=== PATIENT | female | born 1980 | race Caucasian/White ===

== ENCOUNTER → 2017-03-11 | Outpatient (CLI) | payer OTHER | LOC: MW.CHOBGYN 13:53 | PROVIDERS: ATTEND Advanced Practice Midwife | DX: Z34.90 Encounter for supervision of normal pregnancy, unspecified, unspecified trimester (principal) | CPT/HCPCS: 80305; 87491; 87591 ==

== ENCOUNTER 2017-10-22 14:19 | Inpatient (IN) | payer OTHER ==
[2017-10-22] MEDS ORDERED: Carboprost Tromethamine 250 MCG/1 ML Amp IM PRN (15:38)
[2017-10-22] MEDS ORDERED: Nalbuphine 10 MG/1 ML Vial IVPUSH PRN (15:38)
[2017-10-22] MEDS ORDERED: Misoprostol 200 MCG Tab PO PRN (15:38)
[2017-10-22] MEDS ORDERED: Methylergonovine 0.2 MG/1 ML Amp IM PRN (15:38)
[2017-10-22] MEDS ORDERED: Butorphanol 1 MG/ML SDV IVPUSH PRN (15:38)
[2017-10-22] MEDS ORDERED: Sodium Chloride 0.9% 10 ML Syringe FLUSH PRN (15:38)
[2017-10-22] MEDS ORDERED: Sodium Chloride 0.9% 2.5 ML Syringe FLUSH PRN (15:38)
[2017-10-22] MEDS ORDERED: Water For Irrigation,Sterile 1,000 ML Container IRR PRN (15:38)
[2017-10-22] MEDS ORDERED: Lidocaine 1% 50 ML MDV INJECT PRN (15:38)
[2017-10-22] MEDS ORDERED: Oxytocin/0.9 % Sodium Chloride 30 UNIT/500 ML BAG IV SCH (15:45)
[2017-10-22] MEDS ORDERED: Lactated Ringers 1,000 ML IV SCH (15:45)
[2017-10-22] MEDS ORDERED: Ampicillin 2 GM in Sodium Chloride 0.9% 100 ML IV ONE (16:30)
--- NOTE | 2017-10-22 17:06 | PCM.LDHP ---
L&D History of Present Illness - General Date of Service: 10/22/17 Admit Problem/Dx: Patient Status Order with Admit Dx/Problem 10/22/17 15:28 Patient Status [ADT] Routine 10/22/17 15:38 Patient Status [ADT] Routine Admission Diagnosis/Problem Admission Diagnosis/Problem Source of Information: Patient History Limitations: Reports: No Limitations - History of Present Illness Improves with: Reports: None Worsens with: Reports: None Associated Symptoms: Reports: N - Related Data Allergies/Adverse Reactions: Allergies Allergy/AdvReac Type Severity Reaction Status Date / Time No Known Allergies Allergy Verified 10/22/17 15:26 Home Medications: Home Meds PNV95/Ferrous Fumarate/FA [ Tablet] 10/22/17 [History] H&P Review of Systems - Review of Systems: Review Of Systems: See Below General: Reports: No Symptoms HEENT: Reports: No Symptoms Pulmonary: Reports: No Symptoms Cardiovascular: Reports: No Symptoms Gastrointestinal: Reports: No Symptoms Genitourinary: Reports: No Symptoms Musculoskeletal: Reports: No Symptoms Skin: Reports: No Symptoms Psychiatric: Reports: No Symptoms Neurological: Reports: No Symptoms Hematologic/Lymphatic: Reports: No Symptoms Immunologic: Reports: No Symptoms L&D Exam - Exam Exam: See Below - Vital Signs Weight: 122.924 kg - OB Specific Fundal Height In cm: 40 Contraction Intensity: Moderate Movement: Active Heart Tones: Present Presentation: Vertex - Zelaya Score Zelaya Score Cervix Position: Anterior Zelaya Score Consistency: Soft Zelaya Score Effacement: >80% Zelaya Score Dilation: > 5 cm Zelaya Score 's Station: -1 ,0 Zelaya Score Total: 12 - Exam General: Alert, Oriented HEENT: PERRLA, Conjunctiva Clear, EACs Clear, EOMI, Hearing Intact, Mucosa Moist & [place], Nares Patent, Normal Nasal Septum, Posterior Pharynx Clear, TMs Clear Neck: Supple, Trachea Midline Lungs: Clear to Auscultation, Normal Respiratory Effort Cardiovascular: Regular Rate, Regular Rhythm GI/Abdominal Exam: Normal Bowel Sounds, Soft, Non-Tender, No Organomegaly, No Distention, No Abnormal Bruit, No Mass, Pelvis Stable Rectal Exam: Normal Exam, Normal Rectal Tone Genitourinary: Normal external exam, Normal bimanual exam, Normal speculum exam Back Exam: Normal Inspection, Full Range of Motion Extremities: Normal Inspection, Normal Range of Motion, Non-Tender, No Pedal Edema, Normal Capillary Refill Skin: Warm, Dry, Intact Neurological: Cranial Nerves Intact, Reflexes Equal Bilateral Psychiatric: Alert, Normal Affect, Normal Mood - Patient Data Lab Results Last 24 hrs: Laboratory Results - last 24 hr 10/22/17 Range/Units 16:06 WBC 9.59 (4.0-11.0) K/uL RBC 4.17 L (4.30-5.90) M/uL Hgb 11.8 L (12.0-16.0) g/dL Hct 36.8 (36.0-46.0) % MCV 88.2 (80.0-98.0) fL MCH 28.3 (27.0-32.0) pg MCHC 32.1 (31.0-37.0) g/dL RDW Std Deviation 45.6 (28.0-62.0) fl RDW Coeff of Vicky 14 (11.0-15.0) % Plt Count 241 (150-400) K/uL MPV 11.00 (7.40-12.00) fL Nucleated RBC % 0.0 /100WBC Nucleated RBCs # 0 K/uL Result Diagrams: 10/22/17 16:06 Problem List Initiated/Reviewed/Updated: Yes Orders Last 24hrs: Active Orders 24 hr Category Date Time Status Patient Status [ADT] Routine ADT 10/22/17 15:38 Active Heart Tones [RC] CONTINUOUS Care 10/22/17 15:38 Active Non Stress Test [RC] PER UNIT ROUTINE Care 10/22/17 15:28 Active Non Stress Test [RC] PER UNIT ROUTINE Care 10/22/17 15:38 Active May Shower [RC] ASDIRECTED Care 10/22/17 15:38 Active Notify Provider [RC] PRN Care 10/22/17 15:38 Active Up ad Amy [RC] ASDIRECTED Care 10/22/17 15:28 Active Up ad Amy [RC] ASDIRECTED Care 10/22/17 15:38 Active Vaginal Exam [RC] Click to Edit Care 10/22/17 15:28 Active Vaginal Exam [RC] PRN Care 10/22/17 15:38 Active Vital Signs [RC] PER UNIT ROUTINE Care 10/22/17 15:28 Active Vital Signs [RC] PER UNIT ROUTINE Care 10/22/17 15:38 Active Clear Liquid Diet [DIET] Diet 10/22/17 Dinner Active TYPE AND SCREEN [BBK] Routine Lab 10/22/17 16:06 Received Ampicillin 1 gm Med 10/22/17 20:30 Active Sodium Chloride 0.9% [Normal Saline] 50 ml IV Q4H Butorphanol [Stadol] Med 10/22/17 15:38 Active 1 mg IVPUSH Q1H PRN Carboprost Tromethamine [Hemabate DS] Med 10/22/17 15:38 Active 250 mcg IM ASDIRECTED PRN Lactated Ringers [Ringers, Lactated] 1,000 ml Med 10/22/17 15:45 Active IV ASDIRECTED Lidocaine 1% [Xylocaine 1%] Med 10/22/17 15:38 Active 50 ml INJECT .ONCE PRN Methylergonovine [Methergine] Med 10/22/17 15:38 Active 0.2 mg IM ASDIRECTED PRN Misoprostol [Cytotec] Med 10/22/17 15:38 Active 200 mcg PO .ONCE PRN Nalbuphine [Nubain] Med 10/22/17 15:38 Active 10 mg IVPUSH Q1H PRN Oxytocin/0.9 % Sodium Chloride [Oxytocin 30 Unit/500 ML Med 10/22/17 15:45 Active -NS] 30 unit in 500 ml IV TITRATE Sodium Chloride 0.9% [Saline Flush] Med 10/22/17 15:38 Active 10 ml FLUSH ASDIRECTED PRN Sodium Chloride 0.9% [Saline Flush] Med 10/22/17 15:38 Active 2.5 ml FLUSH ASDIRECTED PRN Water For Irrigation,Sterile [Sterile Water for Med 10/22/17 15:38 Active Irrigation] 1,000 ml IRR ASDIRECTED PRN Scalp Electrode [WOMSER] Per Unit Routine Oth 10/22/17 15:38 Ordered Peripheral IV Insertion Adult [OM.PC] Routine Oth 10/22/17 15:38 Ordered Resuscitation Status Routine Resus Stat 10/22/17 15:28 Ordered Medication Orders Butorphanol Tartrate (Stadol) 1 mg IVPUSH Q1H PRN PRN Reason: Pain Carboprost Tromethamine (Hemabate Ds) 250 mcg IM ASDIRECTED PRN PRN Reason: Post Hemorrhage Lactated Ringer's (Ringers, Lactated) 1,000 mls @ 150 mls/hr IV ASDIRECTED [facility] Last Admin: 10/22/17 16:23 Dose: 150 mls/hr Oxytocin/Sodium Chloride (Oxytocin 30 Unit/500 Ml-Ns) 30 unit in 500 mls @ 999 mls/hr IV TITRATE [facility] Ampicillin Sodium 1 gm/ Sodium (Chloride) 50 mls @ 100 mls/hr IV Q4H [facility] Lidocaine HCl (Xylocaine 1%) 50 ml INJECT .ONCE PRN PRN Reason: Laceration repair Methylergonovine Maleate (Methergine) 0.2 mg IM ASDIRECTED PRN PRN Reason: Post Hemorrhage Misoprostol (Cytotec) 200 mcg PO .ONCE PRN PRN Reason: Post Hemorrhage Nalbuphine HCl (Nubain) 10 mg IVPUSH Q1H PRN PRN Reason: Pain (severe 7-10) Sodium Chloride (Saline Flush) 10 ml FLUSH ASDIRECTED PRN PRN Reason: Keep Vein Open Sodium Chloride (Saline Flush) 2.5 ml FLUSH ASDIRECTED PRN PRN Reason: Keep Vein Open Sterile Water (Sterile Water For Irrigation) 1,000 ml IRR ASDIRECTED PRN PRN Reason: delivery Assessment/Plan Comment:: 37 year old [id number] EDC 10/09/2017 admited in active labor. GBS is + will start antibiotic as per protocol. Exoacting .
[2017-10-22] MEDS ORDERED: Ibuprofen 800 MG Tab PO PRN (18:43)
[2017-10-22] MEDS ORDERED: Lanolin 100% Cream 7 GM Tube TOP PRN (18:43)
[2017-10-22] MEDS ORDERED: Docusate Sodium 100 MG Cap PO PRN (18:43)
[2017-10-22] MEDS ORDERED: Witch Hazel Medicated Pads 40/Jar TOP PRN (18:43)
[2017-10-22] MEDS ORDERED: Acetaminophen 500 MG Tab PO PRN ×2 (18:43)
[2017-10-22] MEDS ORDERED: Benzocaine/Menthol 20%-0.5% Spray 78 GM Cannister TOP PRN (18:43)
[2017-10-22] MEDS ORDERED: Ibuprofen 400 MG Tab PO PRN (18:43)
[2017-10-22] MEDS ORDERED: Bisacodyl 10 MG Supp RECTAL PRN (18:43)
[2017-10-22] MEDS ORDERED: oxyCODONE 5 MG Tab PO PRN (18:43)
[2017-10-22] MEDS ORDERED: Ampicillin 1 GM in Sodium Chloride 0.9% 50 ML IV SCH (20:30)
--- NOTE | 2017-10-22 23:39 | OR ---
SURGEON: Jack Odonnell MD DATE OF PROCEDURE: Ms. Crum is 37. She is para 4-0-1-4. She is followed in our clinic primarily by a nurse nuisance wildlife control operator, Nathalia Langford. By her dates, she is 41 plus. She is admitted in active labor. At the time of the admission, she was 5 cm, intact. She is a GBS positive and she started on the antibiotic according to the protocol and after that the patient progressed naturally without any problem. heart rate was category 1 through the entire process of labor. She was complete, complete and membrane was still intact. I did an artificial rupture of the membrane, which shows meconium tinge fluid and the patient with 1 push, she was able to accomplish normal spontaneous vaginal delivery of a male fetus, cried immediately. score reported 8 and 9. The placenta delivered spontaneous without any problem. Estimated blood loss was 250 to 300 mL. There was no complication in this . MAGALYS / ISAURO /[id number]
--- NOTE | 2017-10-23 08:50 | PCM.PNPP ---
- General Info Date of Service: 10/23/17 Functional Status: Reports: Pain Controlled - Review of Systems General: Reports: No Symptoms HEENT: Reports: No Symptoms Pulmonary: Reports: No Symptoms Cardiovascular: Reports: No Symptoms Gastrointestinal: Reports: No Symptoms Genitourinary: Reports: No Symptoms Musculoskeletal: Reports: No Symptoms Skin: Reports: No Symptoms Neurological: Reports: No Symptoms Psychiatric: Reports: No Symptoms - General Info Date of Service: 10/23/17 - Patient Data Vital Signs - Most Recent: Last Vital Signs Temp 36.3 C 10/23/17 08:21 Pulse 74 10/23/17 05:43 Resp 16 10/23/17 08:21 BP 121/81 10/23/17 08:21 Pulse Ox 97 10/23/17 05:43 Weight - Most Recent: 122.924 kg Lab Results - Last 24 Hours: Laboratory Results - last 24 hr 10/22/17 10/22/17 10/23/17 Range/Units 16:06 16:06 05:07 WBC 9.59 (4.0-11.0) K/uL RBC 4.17 L (4.30-5.90) M/uL Hgb 11.8 L 11.9 L (12.0-16.0) g/dL Hct 36.8 36.4 (36.0-46.0) % MCV 88.2 (80.0-98.0) fL MCH 28.3 (27.0-32.0) pg MCHC 32.1 (31.0-37.0) g/dL RDW Std Deviation 45.6 (28.0-62.0) fl RDW Coeff of Vicky 14 (11.0-15.0) % Plt Count 241 (150-400) K/uL MPV 11.00 (7.40-12.00) fL Nucleated RBC % 0.0 /100WBC Nucleated RBCs # 0 K/uL Blood Type O POSITIVE Antibody Screen NEGATIVE Med Orders - Current: Current Medications Acetaminophen (Tylenol Extra Strength) 500 mg PO Q4H PRN PRN Reason: Pain Acetaminophen (Tylenol Extra Strength) 1,000 mg PO Q4H PRN PRN Reason: Pain Benzocaine/Menthol (Dermoplast Pain Relief 20%-0.5% [place]) 0 gm TOP ASDIRECTED PRN PRN Reason: Perineal Comfort Measure Bisacodyl (Dulcolax) 10 mg RECTAL .ONCE PRN PRN Reason: Constipation Butorphanol Tartrate (Stadol) 1 mg IVPUSH Q1H PRN PRN Reason: Pain Carboprost Tromethamine (Hemabate Ds) 250 mcg IM ASDIRECTED PRN PRN Reason: Post Hemorrhage Docusate Sodium (Colace) 100 mg PO BID PRN PRN Reason: Constipation Emollient Ointment (Lansinoh Hpa) 0 gm TOP ASDIRECTED PRN PRN Reason: Sore Nipples Lactated Ringer's (Ringers, Lactated) 1,000 mls @ 150 mls/hr IV ASDIRECTED [facility] Last Admin: 10/22/17 16:23 Dose: 150 mls/hr Oxytocin/Sodium Chloride (Oxytocin 30 Unit/500 Ml-Ns) 30 unit in 500 mls @ 999 mls/hr IV TITRATE [facility] Last Admin: 10/22/17 18:37 Dose: 999 mls/hr Ampicillin Sodium 1 gm/ Sodium (Chloride) 50 mls @ 100 mls/hr IV Q4H [facility] Ibuprofen (Motrin) 400 mg PO Q4H PRN PRN Reason: Pain Ibuprofen (Motrin) 800 mg PO Q6H PRN PRN Reason: Pain Lidocaine HCl (Xylocaine 1%) 50 ml INJECT .ONCE PRN PRN Reason: Laceration repair Methylergonovine Maleate (Methergine) 0.2 mg IM ASDIRECTED PRN PRN Reason: Post Hemorrhage Misoprostol (Cytotec) 200 mcg PO .ONCE PRN PRN Reason: Post Hemorrhage Nalbuphine HCl (Nubain) 10 mg IVPUSH Q1H PRN PRN Reason: Pain (severe 7-10) Oxycodone HCl (Oxycodone) 5 mg PO Q2H PRN PRN Reason: Pain Sodium Chloride (Saline Flush) 10 ml FLUSH ASDIRECTED PRN PRN Reason: Keep Vein Open Sodium Chloride (Saline Flush) 2.5 ml FLUSH ASDIRECTED PRN PRN Reason: Keep Vein Open Sterile Water (Sterile Water For Irrigation) 1,000 ml IRR ASDIRECTED PRN PRN Reason: delivery Witch Kelly (Tucks) 1 pad TOP ASDIRECTED PRN PRN Reason: comfort care Discontinued Medications Ampicillin Sodium 2 gm/ Sodium (Chloride) 100 mls @ 200 mls/hr IV ONETIME ONE Stop: 10/22/17 16:59 Last Admin: 10/22/17 16:23 Dose: 200 mls/hr - Infant Interaction Disposition, : in Room with Family Infant Interaction: Holding Infant Feeding: Attempted ; Nursed Fair/Poor Support Person: - Recovery Exam Fundal Tone: Firm Fundal Level: 1 Fingerbreadths Below Umbilicus Fundal Placement: Midline Lochia Amount: Small Lochia Color: Rubra/Red Perineum Description: Intact, Minimal Bruising/Swelling Episiotomy/Laceration: None Bladder Status: Voiding Urinary Elimination: Voided - Exam General: Alert, Oriented HEENT: Pupils Equal Neck: Supple Lungs: Clear to Auscultation, Normal Respiratory Effort Cardiovascular: Regular Rate, Regular Rhythm GI/Abdominal Exam: Normal Bowel Sounds, Soft, Non-Tender, No Organomegaly, No Distention, No Abnormal Bruit, No Mass, Pelvis Stable Extremities: Normal Inspection, Normal Range of Motion, Non-Tender, No Pedal Edema, Normal Capillary Refill Skin: Warm, Dry, Intact Wound/Incisions: Healing Well Neurological: No New Focal Deficit Psy/Mental Status: Alert, Normal Affect, Normal Mood - Problem List Review Problem List Initiated/Reviewed/Updated: Yes - My Orders Last 24 Hours: My Active Orders 10/22/17 15:28 Up ad Amy [RC] ASDIRECTED Vital Signs [RC] PER UNIT ROUTINE Resuscitation Status Routine 10/22/17 15:38 Heart Tones [RC] CONTINUOUS May Shower [RC] ASDIRECTED Notify Provider [RC] PRN Vital Signs [RC] PER UNIT ROUTINE Butorphanol [Stadol] 1 mg IVPUSH Q1H PRN Carboprost Tromethamine [Hemabate DS] 250 mcg IM ASDIRECTED PRN Lidocaine 1% [Xylocaine 1%] 50 ml INJECT .ONCE PRN Methylergonovine [Methergine] 0.2 mg IM ASDIRECTED PRN Misoprostol [Cytotec] 200 mcg PO .ONCE PRN Nalbuphine [Nubain] 10 mg IVPUSH Q1H PRN Sodium Chloride 0.9% [Saline Flush] 10 ml FLUSH ASDIRECTED PRN Sodium Chloride 0.9% [Saline Flush] 2.5 ml FLUSH ASDIRECTED PRN Water For Irrigation,Sterile [Sterile Water for Irrigation] 1,000 ml IRR ASDIRECTED PRN Scalp Electrode [WOMSER] Per Unit Routine Peripheral IV Insertion Adult [OM.PC] Routine 10/22/17 15:45 Lactated Ringers [Ringers, Lactated] 1,000 ml IV ASDIRECTED Oxytocin/0.9 % Sodium Chloride [Oxytocin 30 Unit/500 ML-NS] 30 unit in 500 ml IV TITRATE 10/22/17 18:43 Patient Status [ADT] Routine Vital Signs [RC] PER UNIT ROUTINE Acetaminophen [Tylenol Extra Strength] 1,000 mg PO Q4H PRN Acetaminophen [Tylenol Extra Strength] 500 mg PO Q4H PRN Benzocaine/Menthol [Dermoplast Pain Relief 20%-0.5% [place]] 0 gm TOP ASDIRECTED PRN Bisacodyl [Dulcolax] 10 mg RECTAL .ONCE PRN Docusate Sodium [Colace] 100 mg PO BID PRN Ibuprofen [Motrin] 400 mg PO Q4H PRN Ibuprofen [Motrin] 800 mg PO Q6H PRN Lanolin [Lansinoh HPA] See Dose Instructions TOP ASDIRECTED PRN Witch Kelly [Tucks] 1 pad TOP ASDIRECTED PRN oxyCODONE 5 mg PO Q2H PRN Assess Lochia [WOMSER] Per Unit Routine Assess Uterine Involution [WOMSER] Per Unit Routine Peripheral IV Discontinue [OM.PC] Routine 10/22/17 20:30 Ampicillin 1 gm Sodium Chloride 0.9% [Normal Saline] 50 ml IV Q4H 10/22/17 Dinner Clear Liquid Diet [DIET] 10/23/17 Breakfast General [Regular Diet] [DIET] - Assessment Assessment:: Patient planning to go home today - Plan Plan:: 37 year old [id number] EDC 10/09/2017 admited in active labor. GBS is + will start antibiotic as per protocol. Exoacting .
--- NOTE | 2017-10-23 08:51 | PCM.DCSUM1 ---
Discharge Summary - Discharge Data Discharge Date: 10/23/17 Discharge Disposition: Home, Self-Care 01 Condition: Good - Patient Instructions Diet: Usual Diet as Tolerated Driving: Do Not Drive Showering/Bathing: March Shower Notify Provider of: Fever, Increased Pain, Nausea and/or Vomiting - Discharge Plan Home Medications: Home Meds PNV95/Ferrous Fumarate/FA [ Tablet] 10/22/17 [History] Referrals: [facility] [Outside] Nathalia Langford CNM [Primary Care Provider] - 12/04/17 10:30 am - General Info Date of Service: 10/23/17 Functional Status: Reports: Pain Controlled - Review of Systems General: Reports: No Symptoms HEENT: Reports: No Symptoms Pulmonary: Reports: No Symptoms Cardiovascular: Reports: No Symptoms Gastrointestinal: Reports: No Symptoms Genitourinary: Reports: No Symptoms Musculoskeletal: Reports: No Symptoms Skin: Reports: No Symptoms Neurological: Reports: No Symptoms Psychiatric: Reports: No Symptoms - Patient Data Vitals - Most Recent: Last Vital Signs Temp 36.3 C 10/23/17 08:21 Pulse 74 10/23/17 05:43 Resp 16 10/23/17 08:21 BP 121/81 10/23/17 08:21 Pulse Ox 97 10/23/17 05:43 Weight - Most Recent: 122.924 kg Lab Results - Last 24 hrs: Laboratory Results - last 24 hr 10/22/17 10/22/17 10/23/17 Range/Units 16:06 16:06 05:07 WBC 9.59 (4.0-11.0) K/uL RBC 4.17 L (4.30-5.90) M/uL Hgb 11.8 L 11.9 L (12.0-16.0) g/dL Hct 36.8 36.4 (36.0-46.0) % MCV 88.2 (80.0-98.0) fL MCH 28.3 (27.0-32.0) pg MCHC 32.1 (31.0-37.0) g/dL RDW Std Deviation 45.6 (28.0-62.0) fl RDW Coeff of Vicky 14 (11.0-15.0) % Plt Count 241 (150-400) K/uL MPV 11.00 (7.40-12.00) fL Nucleated RBC % 0.0 /100WBC Nucleated RBCs # 0 K/uL Blood Type O POSITIVE Antibody Screen NEGATIVE Med Orders - Current: Current Medications Acetaminophen (Tylenol Extra Strength) 500 mg PO Q4H PRN PRN Reason: Pain Acetaminophen (Tylenol Extra Strength) 1,000 mg PO Q4H PRN PRN Reason: Pain Benzocaine/Menthol (Dermoplast Pain Relief 20%-0.5% [place]) 0 gm TOP ASDIRECTED PRN PRN Reason: Perineal Comfort Measure Bisacodyl (Dulcolax) 10 mg RECTAL .ONCE PRN PRN Reason: Constipation Butorphanol Tartrate (Stadol) 1 mg IVPUSH Q1H PRN PRN Reason: Pain Carboprost Tromethamine (Hemabate Ds) 250 mcg IM ASDIRECTED PRN PRN Reason: Post Hemorrhage Docusate Sodium (Colace) 100 mg PO BID PRN PRN Reason: Constipation Emollient Ointment (Lansinoh Hpa) 0 gm TOP ASDIRECTED PRN PRN Reason: Sore Nipples Lactated Ringer's (Ringers, Lactated) 1,000 mls @ 150 mls/hr IV ASDIRECTED [facility] Last Admin: 10/22/17 16:23 Dose: 150 mls/hr Oxytocin/Sodium Chloride (Oxytocin 30 Unit/500 Ml-Ns) 30 unit in 500 mls @ 999 mls/hr IV TITRATE [facility] Last Admin: 10/22/17 18:37 Dose: 999 mls/hr Ampicillin Sodium 1 gm/ Sodium (Chloride) 50 mls @ 100 mls/hr IV Q4H [facility] Ibuprofen (Motrin) 400 mg PO Q4H PRN PRN Reason: Pain Ibuprofen (Motrin) 800 mg PO Q6H PRN PRN Reason: Pain Lidocaine HCl (Xylocaine 1%) 50 ml INJECT .ONCE PRN PRN Reason: Laceration repair Methylergonovine Maleate (Methergine) 0.2 mg IM ASDIRECTED PRN PRN Reason: Post Hemorrhage Misoprostol (Cytotec) 200 mcg PO .ONCE PRN PRN Reason: Post Hemorrhage Nalbuphine HCl (Nubain) 10 mg IVPUSH Q1H PRN PRN Reason: Pain (severe 7-10) Oxycodone HCl (Oxycodone) 5 mg PO Q2H PRN PRN Reason: Pain Sodium Chloride (Saline Flush) 10 ml FLUSH ASDIRECTED PRN PRN Reason: Keep Vein Open Sodium Chloride (Saline Flush) 2.5 ml FLUSH ASDIRECTED PRN PRN Reason: Keep Vein Open Sterile Water (Sterile Water For Irrigation) 1,000 ml IRR ASDIRECTED PRN PRN Reason: delivery Witch Kelly (Tucks) 1 pad TOP ASDIRECTED PRN PRN Reason: comfort care Discontinued Medications Ampicillin Sodium 2 gm/ Sodium (Chloride) 100 mls @ 200 mls/hr IV ONETIME ONE Stop: 10/22/17 16:59 Last Admin: 10/22/17 16:23 Dose: 200 mls/hr - Exam General: Reports: Alert, Oriented HEENT: Reports: Pupils Equal, Pupils Reactive, EOMI, Mucous Membr. Moist/[place] Neck: Reports: Supple Lungs: Reports: Clear to Auscultation, Normal Respiratory Effort Cardiovascular: Reports: Regular Rate, Regular Rhythm GI/Abdominal Exam: Normal Bowel Sounds, Soft, Non-Tender, No Organomegaly, No Distention, No Abnormal Bruit, No Mass, Pelvis Stable (Female) Exam: Normal External Exam, Normal Speculum Exam, Normal Bimanual Exam Rectal (Female) Exam: Normal Exam, Normal Rectal Tone Back Exam: Reports: Normal Inspection, Full Range of Motion Extremities: Normal Inspection, Normal Range of Motion, Non-Tender, No Pedal Edema, Normal Capillary Refill Skin: Reports: Warm, Dry, Intact Wound/Incisions: Reports: Healing Well Neurological: Reports: No New Focal Deficit Psy/Mental Status: Reports: Alert, Normal Affect, Normal Mood *Q Meaningful Use (DIS) - VTE *Q VTE Criteria *Q: - Stroke *Q Stroke Criteria *Q: - AMI *Q AMI Criteria *Q:
== END 2017-10-23 20:35 | disposition home or self-care (01) | DRG 775 ==
LOC: MW.OBCHECK 14:19 → MW.OB 14:22 → MW.OBCHECK 15:39 → MW.OB 15:40 → OBSVTOIN 18:36 → MW.OB 19:30
PROVIDERS: ADMIT Obstetrics & Gynecology; ATTEND Obstetrics & Gynecology
PROC: 10E0XZZ Delivery of Products of Conception, External Approach (ICD-10-PCS; principal; 2017-10-22)
PROC: 10907ZC Drainage of Amniotic Fluid, Therapeutic from Products of Conception, Via Natural or Artificial Opening (ICD-10-PCS; 2017-10-22)
DX: O99.824 Streptococcus B carrier state complicating childbirth (principal); O09.523 Supervision of elderly multigravida, third trimester; Z3A.41 41 weeks gestation of pregnancy; Z37.0 Single live birth
CPT/HCPCS: 36415; 59025; 59409; 85014; 85018; 85027; 86850; 86900; 86901; J0290; J2590; J7030; J7120

== ENCOUNTER 2023-05-28 16:32 | Inpatient (IN) | payer OTHER ==
[2023-05-28] MEDS ORDERED: Carboprost Tromethamine 250 MCG/1 mL Vial IM PRN (16:37)
[2023-05-28] MEDS ORDERED: Sodium Chloride 0.9% 2.5 ML Syringe FLUSH PRN (16:37)
[2023-05-28] MEDS ORDERED: Misoprostol 200 MCG Tab PO PRN (16:37)
[2023-05-28] MEDS ORDERED: Sodium Chloride 0.9% 20 ML SDV IV PRN (16:37)
[2023-05-28] MEDS ORDERED: Methylergonovine 0.2 MG/1 ML Amp IM PRN (16:37)
[2023-05-28] MEDS ORDERED: Butorphanol 1 MG/ML SDV IVPUSH PRN (16:37)
[2023-05-28] MEDS ORDERED: Sodium Chloride 0.9% 10 ML Syringe FLUSH PRN (16:37)
[2023-05-28] MEDS ORDERED: Water For Irrigation,Sterile 1,000 ML Container IRR PRN (16:37)
[2023-05-28] MEDS ORDERED: Tranexamic Acid 1,000 MG in Sodium Chloride 0.9% 100 ML IV PRN (16:37)
[2023-05-28] MEDS ORDERED: Lidocaine 1% 50 ML MDV INJECT PRN (16:37)
[2023-05-28] MEDS ORDERED: Oxytocin/0.9 % Sodium Chloride 30 UNIT/500 ML BAG IV SCH (16:45)
[2023-05-28] MEDS ORDERED: Lactated Ringers 1,000 ML IV SCH (16:45)
[2023-05-28 17:02] LABS: HEMOGLOBIN 12.3 g/dL (12.0-16.0); MEAN CORPUSCULAR HGB CONC 33.2 g/dL (31.0-37.0); MEAN CORPUSCULAR VOLUME 90.2 fL (80.0-98.0); MEAN PLATELET VOLUME 10.5 fL (7.40-12.00); RED BLOOD CELL COUNT 4.1 M/uL (4.30-5.90); WHITE BLOOD CELL COUNT,WBC 9.96 K/uL (4.0-11.0)
[2023-05-28] MEDS ORDERED: Lanolin 100% Cream 7 GM Tube TOP PRN (18:32)
[2023-05-28] MEDS ORDERED: Ibuprofen 800 MG Tab PO PRN (18:32)
[2023-05-28] MEDS ORDERED: Docusate Sodium 100 MG Cap PO PRN (18:32)
[2023-05-28] MEDS ORDERED: Witch Hazel Medicated Pads 40/Jar TOP PRN (18:32)
[2023-05-28] MEDS ORDERED: Acetaminophen 500 MG Tab PO PRN ×2 (18:32)
[2023-05-28] MEDS ORDERED: Bisacodyl 10 MG Supp RECTAL PRN (18:32)
[2023-05-28] MEDS ORDERED: Benzocaine/Menthol 20%-0.5% Spray 78 GM Cannister TOP PRN (18:32)
[2023-05-28] MEDS ORDERED: Ibuprofen 400 MG Tab PO PRN (18:32)
[2023-05-29 06:50] LABS: HEMATOCRIT 32.8 % (36.0-46.0); HEMOGLOBIN 10.8 g/dL (12.0-16.0)
== END 2023-05-29 21:30 | disposition home or self-care (01) | DRG 807 ==
LOC: MW.OB 16:32 → OBSVTOIN 19:01 → MW.OB 21:50
PROVIDERS: ADMIT Obstetrics & Gynecology Obstetrics; ATTEND Obstetrics & Gynecology Obstetrics
PROC: 10E0XZZ Delivery of Products of Conception, External Approach (ICD-10-PCS; principal; 2023-05-28)
DX: O77.0 Labor and delivery complicated by meconium in amniotic fluid (principal); Z37.0 Single live birth; Z3A.40 40 weeks gestation of pregnancy
CPT/HCPCS: 36415; 59025; 59409; 85014; 85018; 85027; 86592; 86850; 86900; 86901; 87340; A9270-GY; J2590